=== PATIENT | female | born 1980 | race Caucasian/White ===

== ENCOUNTER 2016-11-10 16:09 | Emergency (ER) | payer OTHER ==
[2016-11-10] MEDS ORDERED: DECADRON 10MG INJ. IM ONE (16:32)
[2016-11-10] MEDS ORDERED: DECADRON 10MG INJ. ONE (16:34)
--- NOTE | 2016-11-10 16:37 | ERPHSYRPT ---
- History of Present Illness Time Seen by Provider: 11/10/16 16:26 Source: patient Patient Subjective Stated Complaint: cough and sore throat since yesterday. denies fever. c/o burning in chest when she coughs Triage Nursing Assessment: ambulated to room per self. occasional dry cough noted. resp easy. skin w/d, normal color. breath sounds clear. Physician History: CC: cough hx: 36 y/o with prior BTL. She has cough and now sore throat with some hoarseness. No fever. No hx of asthma. She has HTN. No rash, vomiting, nor diarrhea. Timing/Duration: day(s) (2) Allergies/Adverse Reactions: ciprofloxacin [From Cipro] Allergy (Verified 11/10/16 16:22) ciprofloxacin HCl [From Cipro] Allergy (Verified 11/10/16 16:22) iodine Allergy (Verified 11/10/16 16:22) Home Medications: Aspirin [[place] Aspirin] 81 mg PO DAILY 11/10/16 [History] Ergocalciferol (Vitamin D2) [Vitamin D] 400 unit PO DAILY 11/10/16 [History] Lisinopril/Hctz 20/12.5 mg [Lisinopril/ Hctz 20/12.5] 20 mg PO DAILY 11/10/16 [ History] Pravastatin Sodium [Pravachol] 10 mg PO DAILY 11/10/16 [History] Hx Tetanus, Diphtheria Vaccination/Date Given: No Hx Influenza Vaccination/Date Given: No Hx Pneumococcal Vaccination/Date Given: No - Review of Systems Constitutional: Malaise, No Fever, No Chills Eyes: No Symptoms Ears, Nose, & Throat: Throat Pain Respiratory: Cough Abdominal/Gastrointestinal: No Vomiting, No Diarrhea Skin: No Rash Neurological: No Headache All Other Systems: Reviewed and Negative - Past Medical History Pertinent Past Medical History: Yes Cardiac History: Hypertension - Past Surgical History Past Surgical History: Yes Gastrointestinal: Appendectomy Female Surgical History: Tubal Ligation - Social History Smoking Status: Current every day smoker How long have you smoked: 13 Exposure to second hand smoke: Yes Drug Use: none Patient Lives Alone: No - Female History Hx Last Menstrual Period: now Hx Now: Yes - Nursing Vital Signs Nursing Vital Signs: Initial Vital Signs Temperature 97.8 F 11/10/16 16:15 Pulse Rate 68 11/10/16 16:15 Respiratory Rate 16 11/10/16 16:15 Blood Pressure 130/71 11/10/16 16:15 O2 Sat by Pulse Oximetry 97 11/10/16 16:15 Pain Scale Pain Intensity 8 - Physical Exam General Appearance: alert Eye Exam: PERRL/EOMI Ears, Nose, Throat Exam: moist mucous membranes, pharyngeal erythema Neck Exam: normal inspection, non-tender, supple Respiratory Exam: normal breath sounds, lungs clear Cardiovascular Exam: regular rate/rhythm Gastrointestinal/Abdomen Exam: soft, No tenderness, No distention Extremity Exam: normal inspection, normal range of motion Neurologic Exam: alert, oriented x 3, cooperative, sensation nml, No motor deficits Skin Exam: warm, dry, No rash SpO2 Interpretation: normal SpO2: 100 Oxygen Delivery: Room Air - Course Nursing assessment & vital signs reviewed: Yes Ordered Tests: Medication Summary Generic Name Dose Route Start Last Admin Trade Name Freq PRN Reason Stop Dose Admin Dexamethasone Sodium Phosphate 10 mg 11/10/16 16:32 Decadron 10mg Inj. IM 11/10/16 16:33 STAT ONE - Progress Progress Note: 11/10/16 16:36 Decadron IM given. Rx amoxil and alb MDI. Counseled pt/family regarding: diagnosis, need for follow-up - Departure Time of Disposition: 16:36 Departure Disposition: Home Clinical Impression: Acute laryngitis, Acute bronchitis Condition: Stable Critical Care Time: No Referrals: RENATE BENTON [Primary Care Provider] - Instructions: Cough -- Adult, Bronchitis Additional Instructions: UPPER RESPIRATORY INFECTIONS 1. The signs and symptoms of a cold may last up to 10 days. These illnesses are due to viruses which are not treatable with antibiotics. 2. The following suggestions can aid in recovery and to minimize symptoms: A. Increase fluid intake. B. Acetaminophen or Ibuprofen as directed. C. Avoid smoking environments as this will increase the risk of developing pneumonia. D. For children, may use a cool mist vaporizer in the child's room. 3. Contact your Family Physician if you note: A. Persisten fever >103 for more than 3 days B. Breathing difficulty C. Productive cough of yellow/green sputum D. Illness greater than 7 days E. Persistent vomiting F. Stiff neck Rx albuterol MDI. Rx amoxil. Prescriptions: Albuterol Sulfate [Albuterol Sulfate Hfa] 2 puff IH Q4-6HPRN PRN #1 [id number] PRN Reason: cough or wheeze Amoxicillin [Amoxil] 1 cap PO TID #30 capsule
[2016-11-10 16:52] VITALS: BP 133/71; PULSE 64; O2SAT 99
== END 2016-11-10 16:51 | disposition home or self-care (01) ==
LOC: ED 16:09
DX: J04.0 Acute laryngitis (principal); J20.9 Acute bronchitis, unspecified; R05 Cough; R53.81 Other malaise
CPT/HCPCS: 96372; 99284; J1100

== ENCOUNTER 2017-09-10 21:58 | Emergency (ER) | payer OTHER ==
[2017-09-10 22:14] VITALS: PULSE 80; O2SAT 98
--- NOTE | 2017-09-10 22:29 | ERPHSYRPT ---
- History of Present Illness Time Seen by Provider: 09/10/17 22:20 Source: patient Exam Limitations: no limitations Patient Subjective Stated Complaint: Pt arrives to ER with c/o HTN stating around 2029 BP was 201/97. Pt BP was 152/87 this morning. Forgot to take Lisinopril this morning so took it around 1200. Uses home BP cuff, states woke up with a headache, picked up daughter, came back home and checked her BP, found it to be high. Pt called PCP after hours and was told to come into ER. pt has pain in right arm, neck and headache. Pt does not appear to be in any distress at this time. BP upon arrival to ER 151/89. Triage Nursing Assessment: see above Physician History: The patient is a 37-year-old female complaining of a headache all day. She also has some tingling in her right fingers with extension of the tingling up to her right shoulder. She states this right hand and arm problem is intermittent and has been going on for several weeks and she is not worried about it. She took her blood pressure with her home blood pressure cuff and found it to be 201/97. She took a nap hoping that the headache would go away but it did not. She did not take any pain medicine. She wanted to call her primary care provider but she is on vacation. Her blood pressure is normally about 120 systolic. She does take lisinopril. Her past medical history significant for hypertension. Timing/Duration: today Severity: moderate Modifying Factors: Improves With: nothing Associated Symptoms: headaches Allergies/Adverse Reactions: ciprofloxacin [From Cipro] Allergy (Verified 09/10/17 22:14) ciprofloxacin HCl [From Cipro] Allergy (Verified 09/10/17 22:14) iodine Allergy (Verified 09/10/17 22:14) Home Medications: Aspirin [[place] Aspirin] 81 mg PO DAILY 11/10/16 [History] Ergocalciferol (Vitamin D2) [Vitamin D] 400 unit PO DAILY 11/10/16 [History] Pravastatin Sodium [Pravachol] 10 mg PO DAILY 11/10/16 [History] Lisinopril 5 mg PO DAILY 09/10/17 [History] hydroCHLOROthiazide [Hydrochlorothiazide] 12.5 mg PO DAILY 09/10/17 [History] Hx Tetanus, Diphtheria Vaccination/Date Given: No Hx Influenza Vaccination/Date Given: No Hx Pneumococcal Vaccination/Date Given: No - Review of Systems Constitutional: No Fever, No Chills Eyes: No Symptoms Ears, Nose, & Throat: No Symptoms Respiratory: No Cough, No Dyspnea Cardiac: No Chest Pain, No Edema, No Syncope Abdominal/Gastrointestinal: No Symptoms Genitourinary Symptoms: No Dysuria Musculoskeletal: No Back Pain, No Neck Pain Skin: No Rash Neurological: Headache Psychological: No Symptoms Endocrine: No Symptoms Hematologic/Lymphatic: No Symptoms Immunological/Allergic: No Symptoms All Other Systems: Reviewed and Negative - Past Medical History Pertinent Past Medical History: Yes Cardiac History: Hypertension - Past Surgical History Past Surgical History: Yes Gastrointestinal: Appendectomy Female Surgical History: Tubal Ligation - Social History Smoking Status: Current every day smoker How long have you smoked: 0.25 Exposure to second hand smoke: Yes Drug Use: none Patient Lives Alone: No - Female History Hx Now: No - Nursing Vital Signs Nursing Vital Signs: Initial Vital Signs Temperature 99 F 09/10/17 22:05 Pulse Rate 80 09/10/17 22:05 Respiratory Rate 18 09/10/17 22:05 Blood Pressure 151/89 09/10/17 22:05 O2 Sat by Pulse Oximetry 98 09/10/17 22:05 Pain Scale Pain Intensity 8 - Physical Exam General Appearance: no apparent distress, alert Eye Exam: PERRL/EOMI, eyes nml inspection Ears, Nose, Throat Exam: normal ENT inspection, TMs normal, pharynx normal, moist mucous membranes Neck Exam: normal inspection, non-tender, supple, full range of motion Respiratory Exam: normal breath sounds, lungs clear, No respiratory distress Cardiovascular Exam: regular rate/rhythm, normal heart sounds, normal peripheral pulses Gastrointestinal/Abdomen Exam: soft, normal bowel sounds, No tenderness, No mass Pelvic Exam: not done Rectal Exam: not done Back Exam: normal inspection, normal range of motion, No CVA tenderness, No vertebral tenderness Extremity Exam: normal inspection, normal range of motion, pelvis stable Neurologic Exam: alert, oriented x 3, cooperative, normal mood/affect, nml cerebellar function, nml station & gait, sensation nml, No motor deficits Skin Exam: normal color, warm, dry, No rash Lymphatic Exam: No adenopathy SpO2 Interpretation: normal SpO2: 98 Oxygen Delivery: Room Air Ordered Tests: Active Orders 24 hr Category Date Time Status IV Insertion STAT Care 09/10/17 22:29 Active BMP Stat Lab 09/10/17 22:30 Completed CBC W DIFF Stat Lab 09/10/17 22:30 Completed CULTURE,URINE Stat Lab 09/10/17 22:36 Received UA W/ MICROSCOPIC Stat Lab 09/10/17 22:36 Completed Urine Triage Profile Stat Lab 09/10/17 22:30 Completed Medication Summary Discontinued Medications Generic Name Dose Route Start Last Admin Trade Name Arpan PRN Reason Stop Dose Admin Ketorolac Tromethamine 30 mg 09/10/17 22:29 09/10/17 22:35 Toradol 30 Mg Injection IV 09/10/17 22:30 30 mg STAT ONE Administration Ketorolac Tromethamine Confirm 09/10/17 22:32 Toradol 30 Mg Injection Administered 09/10/17 22:33 Dose 30 mg .ROUTE .[employer] ONE Lab/Rad Data: Laboratory Result Diagrams 09/10/17 22:30 09/10/17 22:30 Laboratory Results 09/10/17 09/10/17 09/10/17 Range/Units 22:36 22:30 22:30 WBC (4.0-10.5) K/mm3 RBC (4.1-5.4) M/mm3 Hgb (12.0-16.0) gm/dl Hct (35-47) % MCV (78-100) fl MCH (26-32) pg MCHC (32-36) g/dl RDW (11.5-14.0) % Plt Count (150-450) K/mm3 MPV (6-9.5) fl Gran % (36.0-66.0) % Eos # (Auto) (0-0.5) Absolute Lymphs (auto) (1.0-4.6) Absolute Monos (auto) (0.0-1.3) Lymphocytes % (24.0-44.0) % Monocytes % (0.0-12.0) % Eosinophils % (0.00-5.0) % Basophils % (0.0-0.4) % Absolute Granulocytes (1.4-6.9) Basophils # (0-0.4) Sodium 141 (137-145) mmol/L Potassium 3.8 (3.5-5.1) mmol/L Chloride 107 (98-107) mmol/L Carbon Dioxide 25 (22-30) mmol/L Anion Gap 13.3 (5-15) MEQ/L BUN 8 (7-17) mg/dL Creatinine 0.89 (0.52-1.04) mg/dL Estimated GFR > 60.0 ML/MIN Glucose 103 (74-106) mg/dL Calcium 9.6 (8.4-10.2) mg/dL Ur Collection Type VOID Urine Color YELLOW (YELLOW) Urine Appearance CLOUDY (CLEAR) Urine pH 7.5 (5-6) Ur Specific [place] 1.010 (1.005-1.025) Urine Protein TRACE (Negative) Urine Ketones NEGATIVE (NEGATIVE) Urine Blood NEGATIVE (0-5) Bang/ul Urine Nitrite NEGATIVE (NEGATIVE) Urine Bilirubin NEGATIVE (NEGATIVE) Urine Urobilinogen NORMAL (0-1) mg/dL Ur Leukocyte Esterase TRACE (NEGATIVE) Urine Microscopic WBC 2-5 (0-5) /HPF Ur Epithelial Cells MODERATE (FEW) /HPF Urine Bacteria MODERATE (NEGATIVE) /HPF Urine Culture Reflexed YES (NO) Urine Glucose NEGATIVE (NEGATIVE) mg/dL Urine Opiates Level NEGATIVE (NEGATIVE) Ur Methadone NEGATIVE (NEGATIVE) Urine Barbiturates NEGATIVE (NEGATIVE) Ur Phencyclidine (PCP) NEGATIVE (NEGATIVE) Urine Amphetamine NEGATIVE (NEGATIVE) U Benzodiazepine Level NEGATIVE (NEGATIVE) Urine Cocaine NEGATIVE (NEGATIVE) Urine Marijuana (THC) NEGATIVE (NEGATIVE) Specimen Received 09/10/175 09/10/17 Range/Units 22:30 WBC 9.4 (4.0-10.5) K/mm3 RBC 4.94 (4.1-5.4) M/mm3 Hgb 14.7 (12.0-16.0) gm/dl Hct 42.5 (35-47) % MCV 86.0 (78-100) fl MCH 29.8 (26-32) pg MCHC 34.6 (32-36) g/dl RDW 13.1 (11.5-14.0) % Plt Count 286 (150-450) K/mm3 MPV 10.1 H (6-9.5) fl Gran % 58.6 (36.0-66.0) % Eos # (Auto) 0.12 (0-0.5) Absolute Lymphs (auto) 2.74 (1.0-4.6) Absolute Monos (auto) 1.00 (0.0-1.3) Lymphocytes % 29.2 (24.0-44.0) % Monocytes % 10.6 (0.0-12.0) % Eosinophils % 1.3 (0.00-5.0) % Basophils % 0.3 (0.0-0.4) % Absolute Granulocytes 5.50 (1.4-6.9) Basophils # 0.03 (0-0.4) Sodium (137-145) mmol/L Potassium (3.5-5.1) mmol/L Chloride (98-107) mmol/L Carbon Dioxide (22-30) mmol/L Anion Gap (5-15) MEQ/L BUN (7-17) mg/dL Creatinine (0.52-1.04) mg/dL Estimated GFR ML/MIN Glucose (74-106) mg/dL Calcium (8.4-10.2) mg/dL Ur Collection Type Urine Color (YELLOW) Urine Appearance (CLEAR) Urine pH (5-6) Ur Specific [place] (1.005-1.025) Urine Protein (Negative) Urine Ketones (NEGATIVE) Urine Blood (0-5) Bang/ul Urine Nitrite (NEGATIVE) Urine Bilirubin (NEGATIVE) Urine Urobilinogen (0-1) mg/dL Ur Leukocyte Esterase (NEGATIVE) Urine Microscopic WBC (0-5) /HPF Ur Epithelial Cells (FEW) /HPF Urine Bacteria (NEGATIVE) /HPF Urine Culture Reflexed (NO) Urine Glucose (NEGATIVE) mg/dL Urine Opiates Level (NEGATIVE) Ur Methadone (NEGATIVE) Urine Barbiturates (NEGATIVE) Ur Phencyclidine (PCP) (NEGATIVE) Urine Amphetamine (NEGATIVE) U Benzodiazepine Level (NEGATIVE) Urine Cocaine (NEGATIVE) Urine Marijuana (THC) (NEGATIVE) Specimen Received - Progress Progress: improved Counseled pt/family regarding: lab results, diagnosis - Departure Time of Disposition: 23:19 Departure Disposition: Home Clinical Impression: Headache Condition: Stable Critical Care Time: No Referrals: RENATE BENTON [Primary Care Provider] - Additional Instructions: You have a headache that we treated with Toradol 30 mg by IV. Your laboratory results were all normal including the urinalysis. Continue with over-the- counter medicine such as Tylenol 1000 mg every 8 hours or ibuprofen 800 mg every 8 hours as needed. Follow-up with your primary medical doctor as needed.
[2017-09-10] MEDS ORDERED: TORAdol 30 mg Injection ONE (22:32)
[2017-09-10 22:34] LABS: BASOPHIL % 0.3 % (0.0-0.4); Basophil (Absolute #) 0.03 (0-0.4); Eosinophil % 1.3 % (0.00-5.0); Eosinophil (Absolute #) 0.12 (0-0.5); Granulocytes % 58.6 % (36.0-66.0); Hematocrit 42.5 % (35-47); Hemoglobin 14.7 gm/dl (12.0-16.0); Lymphocyte (Absolute #) 2.74 (1.0-4.6); Lymphocytes % 29.2 % (24.0-44.0); Mean Corpuscular Hemoglobin 29.8 pg (26-32); Mean Corpuscular Hgb Concent. 34.6 g/dl (32-36); Mean Platelet Volume 10.1 fl (6-9.5); Monocytes % 10.6 % (0.0-12.0); Platelet Count 286 K/mm3 (150-450); Red Blood Count 4.94 M/mm3 (4.1-5.4); Red Cell Distribution Width 13.1 % (11.5-14.0); White Blood Count 9.4 K/mm3 (4.0-10.5)
[2017-09-10] MEDS: TORAdol 30 mg Injection IV ONE (22:35)
[2017-09-10 22:49] LABS: Appearance CLOUDY (CLEAR); Bilirubin NEGATIVE (NEGATIVE); Blood NEGATIVE Ery/ul (0-5); Glucose NEGATIVE (NEGATIVE); Ketones NEGATIVE (NEGATIVE); Leukocyte Esterase TRACE (NEGATIVE); Nitrite NEGATIVE (NEGATIVE); Ph 7.5 (5-6); Urobilinogen NORMAL mg/dL (0-1)
[2017-09-10 22:50] LABS: Protein,Urine Dip TRACE (Negative)
[2017-09-10 22:53] LABS: Bacteria MODERATE /HPF (NEGATIVE); Epithelial Cells MODERATE /HPF (FEW)
[2017-09-10 22:57] LABS: Amphetamine,Urine NEGATIVE (NEGATIVE); Barbiturate,Urine NEGATIVE (NEGATIVE); Benzodiazepine,Urine NEGATIVE (NEGATIVE); Cocaine,Urine NEGATIVE (NEGATIVE); Methadone,Urine NEGATIVE (NEGATIVE); Opiate,Urine NEGATIVE (NEGATIVE); PCP,Urine NEGATIVE (NEGATIVE); THC,Urine NEGATIVE (NEGATIVE)
[2017-09-10 23:04] LABS: ANION GAP 13.3 MEQ/L (5-15); BLOOD UREA NITROGEN 8 mg/dL (7-17); CHLORIDE 107 mmol/L (98-107); Calcium 9.6 mg/dL (8.4-10.2); Carbon Dioxide 25 mmol/L (22-30); Creatinine 1 0.89 mg/dL (0.52-1.04); Glucose 103 mg/dL (74-106); Potassium 3.8 mmol/L (3.5-5.1); SODIUM 141 mmol/L (137-145)
[2017-09-10 23:22] VITALS: BP 123/75
== END 2017-09-10 23:25 | disposition home or self-care (01) ==
LOC: ED 21:58
DX: R51 Headache (principal); I10 Essential (primary) hypertension; Z72.0 Tobacco use; Z79.899 Other long term (current) drug therapy
CPT/HCPCS: 36000; 36415; 80048; 80307; 81000; 85025; 87086; 96374; 99284; J1885

== ENCOUNTER 2020-01-01 19:11 | Emergency (ER) | payer BC, OTHER ==
[2020-01-01 19:19] VITALS: O2SAT 99
--- NOTE | 2020-01-01 19:45 | ERPHSYRPT ---
- History of Present Illness Source: patient Patient Subjective Stated Complaint: pt c/o bites to lt arm and lt lower leg Triage Nursing Assessment: pt has 2 bites with redness and welps to lt elbow/upper arm and 1 bite to lt lower ext with blister and a couple blisters that have busted. All areas are red, warm and skin is tight. Pt denies any pain but can feel the tightness. Physician History: 39 yo wf w lesions LUE/LLE x 1 day. Pt states that she thinks that something has bitten her. Lesions are mildly painful and mildly pruritic. She has never had lesions like this before, and denies family members w similar lesions. New exposures are also denied, along w fever/ST. Timing/Duration: other (1 day) Quality: itchy, painful Severity: mild Location: extremities Possible Causes: no cause identified Associated Symptoms: blisters, No change in skin texture, No difficulty breathing, No edema, No fever, No flushing, No headache, No hives, No jaundice, No malaise, No nasal congestion, No numbness, No pallor, No paresthesia, No petechiae, No rash, No sore throat, No swelling/mass/lumps, No tingling Allergies/Adverse Reactions: ciprofloxacin [From Cipro] Allergy (Severe, Verified 01/01/20 19:25) Shortness of Breath ciprofloxacin HCl [From Cipro] Allergy (Severe, Verified 01/01/20 19:25) Shortness of Breath iodine Allergy (Intermediate, Verified 01/01/20 19:25) Rash poison cosme extract Allergy (Intermediate, Verified 01/01/20 19:25) Rash poison oak extract Allergy (Intermediate, Verified 01/01/20 19:25) Rash Home Medications: Aspirin [[place] Aspirin] 81 mg PO DAILY 11/10/16 [History] Ergocalciferol (Vitamin D2) [Vitamin D] 400 unit PO UD 11/10/16 [History] hydroCHLOROthiazide [Hydrochlorothiazide] 12.5 mg PO DAILY 09/10/17 [History] lisinopriL [Lisinopril] 10 mg PO DAILY 09/10/17 [History] Amlodipine Besylate 5 mg PO DAILY 01/01/20 [History] Sertraline HCl 50 mg [Zoloft 50 mg Tablet] 50 mg PO DAILY 01/01/20 [History] Hx Tetanus, Diphtheria Vaccination/Date Given: Yes Hx Influenza Vaccination/Date Given: Yes Hx Pneumococcal Vaccination/Date Given: No Immunizations Up to Date: Yes Travel Risk - International Travel Have you traveled outside of the country in past 3 weeks: No - Coronavirus Screening Are you exhibiting any of the following symptoms?: No - Review of Systems Constitutional: No Symptoms Eyes: No Symptoms Ears, Nose, & Throat: No Symptoms Respiratory: No Symptoms Cardiac: No Symptoms Abdominal/Gastrointestinal: No Symptoms Genitourinary Symptoms: No Symptoms Musculoskeletal: No Symptoms Neurological: No Symptoms Psychological: No Symptoms Endocrine: No Symptoms Hematologic/Lymphatic: No Symptoms Immunological/Allergic: No Symptoms - Past Medical History Pertinent Past Medical History: Yes Neurological History: No Pertinent History ENT History: No Pertinent History Cardiac History: Hypertension Respiratory History: Bronchitis Endocrine Medical History: No Pertinent History Musculoskeletal History: No Pertinent History GI Medical History: No Pertinent History History: No Pertinent History Psycho-Social History: Depression Female Reproductive Disorders: No Pertinent History - Past Surgical History Past Surgical History: Yes Neuro Surgical History: No Pertinent History Cardiac: No Pertinent History Respiratory: No Pertinent History Gastrointestinal: Appendectomy Genitourinary: No Pertinent History Musculoskeletal: No Pertinent History Female Surgical History: Tubal Ligation - Social History Smoking Status: Former smoker How long have you smoked: 0.25 Exposure to second hand smoke: No Drug Use: none Patient Lives Alone: No - Female History Hx Last Menstrual Period: Nov, 2019 Hx Now: No - Nursing Vital Signs Nursing Vital Signs: Initial Vital Signs Temperature 98.1 F 01/01/20 19:17 Pulse Rate 66 01/01/20 19:17 Respiratory Rate 18 01/01/20 19:17 Blood Pressure 169/65 01/01/20 19:17 O2 Sat by Pulse Oximetry 99 01/01/20 19:17 Pain Scale Pain Intensity 0 - Physical Exam General Appearance: no apparent distress Eye Exam: PERRL/EOMI, eyes nml inspection Ears, Nose, Throat Exam: normal ENT inspection, TMs normal, pharynx normal, moist mucous membranes Neck Exam: normal inspection, non-tender, supple, full range of motion, No meningismus, No mass, No Brudzinski, No Kernig's Respiratory Exam: normal breath sounds, lungs clear, airway intact, No re spiratory distress Cardiovascular Exam: regular rate/rhythm, normal heart sounds, normal peripheral pulses, No murmur Gastrointestinal/Abdomen Exam: soft, normal bowel sounds, No tenderness Pelvic Exam: not done Back Exam: normal inspection, normal range of motion, No CVA tenderness, No vertebral tenderness Neurologic Exam: alert, oriented x 3, 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 Lesions L pretibial area w bullae and could possibly be infected lesions, so doxycycline started. Pt advised to start Doxycycline twice a day. Counseled pt/family regarding: diagnosis, need for follow-up - Departure Departure Disposition: Home Clinical Impression: Insect bites Condition: Stable Critical Care Time: No Referrals: RENATE JOSHI [Primary Care Provider] - Instructions: Insect Bites and Stings (DC) Additional Instructions: Start Benadryl 25mg every 6 hours as needed Doxycycline twice a day for 1 week Follow up with your family MD in 2-3 days Return to ER for increasing redness/swelling/temperature greater than 100.5 Prescriptions: Doxycycline Monohydrate 100 mg PO BID #14 tablet
[2020-01-01 20:44] VITALS: BP 140/82; PULSE 62
== END 2020-01-01 20:26 | disposition home or self-care (01) ==
LOC: ED 19:11
DX: S70.362A Insect bite (nonvenomous), left thigh, initial encounter (principal); S40.862A Insect bite (nonvenomous) of left upper arm, initial encounter; Z79.899 Other long term (current) drug therapy
CPT/HCPCS: 99283

== ENCOUNTER 2021-06-02 13:23 | Emergency (ER) | payer OTHER ==
--- NOTE | 2021-06-02 13:25 | ERPHSYRPT ---
- History of Present Illness Time Seen by Provider: 06/02/21 13:25 Source: patient Exam Limitations: no limitations Physician History: This is a right-handed, 41-year-old, white female patient of Dr. Du Cotton who presents with 2-week history of right wrist pain. She did not fall or suffer any acute traumatic injury per her report. She does not perform repetitive activity with her wrists. She has a [id number] wrist splint. She states this helps the pain. She is concerned about a fracture. Occurred: other (2 weeks) Method of Injury: other (No acute injury) Quality: aching (When moving side to side) Severity of Pain-Max: mild (To moderate) Severity of Pain-Current: mild Extremities Pain Location: wrist: right Modifying Factors: Improves With: movement (Side to side (medial to lateral)) Associated Symptoms: none Allergies/Adverse Reactions: ciprofloxacin [From Cipro] Allergy (Severe, Verified 06/02/21 13:38) Shortness of Breath ciprofloxacin HCl [From Cipro] Allergy (Severe, Verified 06/02/21 13:38) Shortness of Breath iodine Allergy (Intermediate, Verified 06/02/21 13:38) Rash poison cosme extract Allergy (Intermediate, Verified 06/02/21 13:38) Rash poison oak extract Allergy (Intermediate, Verified 06/02/21 13:38) Rash Home Medications: Aspirin [[place] Aspirin] 81 mg PO DAILY 11/10/16 [History] Ergocalciferol (Vitamin D2) [Vitamin D] 400 unit PO UD 11/10/16 [History] hydroCHLOROthiazide [Hydrochlorothiazide] 12.5 mg PO DAILY 09/10/17 [History] lisinopriL [Lisinopril] 10 mg PO DAILY 09/10/17 [History] Amlodipine Besylate 5 mg PO DAILY 01/01/20 [History] Sertraline HCl 50 mg [Zoloft 50 mg Tablet] 100 mg PO DAILY 01/01/20 [History] Hx Tetanus, Diphtheria Vaccination/Date Given: Yes Hx Influenza Vaccination/Date Given: Yes Hx Pneumococcal Vaccination/Date Given: No Travel Risk - International Travel Have you traveled outside of the country in past 3 weeks: No - Coronavirus Screening Are you exhibiting any of the following symptoms?: No Close contact with a COVID-19 positive Pt in past 14-21 Days: No - Review of Systems Constitutional: No Symptoms Eyes: No Symptoms Ears, Nose, & Throat: No Symptoms Respiratory: No Symptoms Cardiac: No Symptoms Abdominal/Gastrointestinal: No Symptoms Genitourinary Symptoms: No Symptoms Musculoskeletal: Joint Pain (Right wrist) Skin: No Symptoms Neurological: No Symptoms Psychological: No Symptoms Endocrine: No Symptoms Hematologic/Lymphatic: No Symptoms Immunological/Allergic: No Symptoms All Other Systems: Reviewed and Negative - Past Medical History Pertinent Past Medical History: Yes Neurological History: No Pertinent History ENT History: No Pertinent History Cardiac History: Hypertension Respiratory History: Bronchitis Endocrine Medical History: No Pertinent History Musculoskeletal History: No Pertinent History GI Medical History: No Pertinent History History: No Pertinent History Psycho-Social History: Depression Female Reproductive Disorders: No Pertinent History - Past Surgical History Past Surgical History: Yes Neuro Surgical History: No Pertinent History Cardiac: No Pertinent History Respiratory: No Pertinent History Gastrointestinal: Appendectomy Genitourinary: No Pertinent History Musculoskeletal: No Pertinent History Female Surgical History: Tubal Ligation - Social History Smoking Status: Former smoker How long have you smoked: 0.25 Exposure to second hand smoke: No Drug Use: none Patient Lives Alone: No - Nursing Vital Signs Nursing Vital Signs: Initial Vital Signs Temperature 97.6 F 06/02/21 13:26 Pulse Rate 58 L 06/02/21 13:26 Blood Pressure 154/81 06/02/21 13:26 O2 Sat by Pulse Oximetry 100 06/02/21 13:26 Pain Scale Pain Intensity 6 - Physical Exam General Appearance: no apparent distress, alert, anxiety, obese Eyes, Ears, Nose, Throat Exam: normal ENT inspection, moist mucous membranes Neck Exam: normal inspection, non-tender, supple, full range of motion Cardiovascular/Respiratory Exam: chest non-tender, no respiratory distress Abdominal Exam: non-tender Back Exam: No CVA tenderness, No vertebral tenderness Shoulder Exam: normal inspection, non-tender, no evidence of injury, normal ROM Elbow/Forearm Exam: normal inspection, non-tender, no evidence of injury, normal ROM Wrist Exam: normal inspection, no evidence of injury, normal ROM, soft tissue tenderness (With lateral to medial movement), No deformity Hand Exam: normal inspection, non-tender, no evidence of injury, normal ROM Neuro/Tendon Exam: normal sensation, normal motor functions, normal tendon functions Mental Status Exam: alert, oriented x 3, cooperative Skin Exam: normal color, warm, dry SpO2 Interpretation: normal O2 Delivery: Room Air - Course Nursing assessment & vital signs reviewed: Yes Ordered Tests: Active Orders 24 hr Category Date Time Status WRIST (MIN 3 VIEWS) Stat Exams 06/02/21 13:36 Completed - Progress Progress: unchanged Progress Note: 06/02/21 14:24 Right wrist x-ray shows no acute fracture or dislocation. Counseled pt/family regarding: diagnosis, need for follow-up, rad results - Departure Departure Disposition: Home Clinical Impression: Right wrist pain Condition: Stable Critical Care Time: No Referrals: RENATE NGUYEN [Primary Care Provider] - Follow up/PCP as directed Additional Instructions: Place right hand and wrist in a ice bath as discussed 3 times a day for the next 48 hours. Add Tylenol to the prednisone I am writing for you. Take your medication as prescribed. If your pain persists beyond 48 hours to the same degree, follow-up with [facility] orthopedic clinic Sunday through Sunday 8 AM to 10 AM. It is a walk-in clinic and you do not need to have an appointment. Wear the splint we provided you for pain control Prescriptions: Prednisone 10 mg [Deltasone 10 mg] 10 mg PO TID #12 tablet
--- NOTE | 2021-06-02 13:56 | XRAY ---
Indication: Pain around ulnar styloid 2 weeks. No known injury. Comparison: None 3 view right wrist obtained. No bony, articular, or soft tissue abnormalities.
[2021-06-02 14:31] VITALS: BP 150/81; PULSE 64; O2SAT 98
== END 2021-06-02 14:35 | disposition home or self-care (01) ==
LOC: ED 13:23
DX: M25.531 Pain in right wrist (principal); I10 Essential (primary) hypertension; Z79.52 Long term (current) use of systemic steroids; Z79.899 Other long term (current) drug therapy
CPT/HCPCS: 73110; 99283; L3908

== ENCOUNTER 2023-01-05 01:05 | Emergency (ER) | payer OTHER ==
[2023-01-05 01:29] VITALS: RESP 16; TEMP 97.5
[2023-01-05] MEDS ORDERED: BENADRYL 25 MG CAPSULE PO ONE (01:35)
[2023-01-05] MEDS ORDERED: solu-MEDROL 125 MG, Sterile H2O 10 ml 2 ML IM ONE ×2 (01:36)
[2023-01-05] MEDS ORDERED: BENADRYL 25 MG CAPSULE ONE (01:39)
[2023-01-05] MEDS ORDERED: solu-MEDROL ONE (01:39)
[2023-01-05] MEDS ORDERED: Sterile H2O 10 ml IJ ONE (01:39)
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
[2023-01-05 02:02] VITALS: BP 154/113; PULSE 69; O2SAT 98
== END 2023-01-05 02:06 | disposition home or self-care (01) ==
LOC: ED 01:05
DX: S40.862A Insect bite (nonvenomous) of left upper arm, initial encounter (principal); S40.861A Insect bite (nonvenomous) of right upper arm, initial encounter; S20.369A Insect bite (nonvenomous) of unspecified front wall of thorax, initial encounter; I10 Essential (primary) hypertension; Z79.52 Long term (current) use of systemic steroids; Z79.899 Other long term (current) drug therapy; Z72.0 Tobacco use
CPT/HCPCS: 96372; 99283; J2930; A9270-GY

== ENCOUNTER 2023-01-28 16:31 | Emergency (ER) | payer OTHER ==
[2023-01-28 16:45] VITALS: BP 140/73; PULSE 77; RESP 18; TEMP 98.8; O2SAT 100
[2023-01-28 17:41] LABS: INFLUENZA A NEGATIVE (NEGATIVE); INFLUENZA B NEGATIVE (NEGATIVE); SARS-CoV-2 Xpert Express NEGATIVE (NEGATIVE)
[2023-01-28 17:48] LABS: RESPIRATORY SYNCTIAL VIRUS POSITIVE (NEGATIVE)
--- NOTE | 2023-01-28 18:23 | ERPHSYRPT ---
- History of Present Illness Time Seen by Provider: 01/28/23 16:44 Source: patient Exam Limitations: no limitations Patient Subjective Stated Complaint: Cough Triage Nursing Assessment: Patient ambulated back to ED and transferred self to bed. Patient A+O X3. Patient's skin pink, warm and dry. Patient complains of cough, fatigue for 4 days. Patient complains of productive cough with thick white mucus. Patient denies pain or discomfort. Lungs clear a/p cecy. Physician History: 42 years old female with history of anxiety/depression/hypertension/tobacco abuse presented in the ER with 4 days history of cough congestion and body aches/fatigue and tiredness. Patient reports having dry cough initially and now having minimal productive clear to thick mucus. No fever or chills reported. Patient reports positive contact with flu and COVID at group home. Denies any difficulty breathing. Has home COVID test done multiple times and was negative. Allergies/Adverse Reactions: ciprofloxacin [From Cipro] Allergy (Severe, Verified 01/28/23 16:33) Shortness of Breath ciprofloxacin HCl [From Cipro] Allergy (Severe, Verified 01/28/23 16:33) Shortness of Breath iodine Allergy (Intermediate, Verified 01/28/23 16:33) Rash poison cosme extract Allergy (Intermediate, Verified 01/28/23 16:33) Rash poison oak extract Allergy (Intermediate, Verified 01/28/23 16:33) Rash Home Medications: Aspirin [[place] Aspirin] 81 mg PO DAILY 11/10/16 [History] Albuterol Sulfate [Albuterol Sulfate Hfa] 2 puff IH Q6HPRN PRN 01/05/23 [History] Cholecalciferol (Vitamin D3) [D-2000] 2,000 unit PO UD 01/05/23 [History] Escitalopram Oxalate [Lexapro] 10 mg PO DAILY 01/05/23 [History] Lisinopril/Hydrochlorothiazide [Lisinopril-Hctz 10-12.5 mg Tab] 1 each PO DAILY 01/05/23 [History] Hx Tetanus, Diphtheria Vaccination/Date Given: No (unknown) Hx Influenza Vaccination/Date Given: Yes Hx Pneumococcal Vaccination/Date Given: No Immunizations Up to Date: Yes Travel Risk - International Travel Have you traveled outside of the country in past 3 weeks: No - Coronavirus Screening Are you exhibiting any of the following symptoms?: No Close contact with a COVID-19 positive Pt in past 14-21 Days: No - Vaccine Status Have you recieved a Covid-19 vaccination: Yes [employer]: Moderna - Vaccination Dates Date of 2cond Vaccination (if applicable): 2020 - Review of Systems Constitutional: Fatigue Eyes: No Symptoms Ears, Nose, & Throat: Nose Congestion Respiratory: Cough Cardiac: No Symptoms Abdominal/Gastrointestinal: No Symptoms Genitourinary Symptoms: No Symptoms Musculoskeletal: Myalgias Skin: No Symptoms Neurological: No Symptoms Psychological: No Symptoms Hematologic/Lymphatic: No Symptoms - Past Medical History Pertinent Past Medical History: Yes Neurological History: No Pertinent History ENT History: No Pertinent History Cardiac History: Hypertension Respiratory History: Bronchitis Endocrine Medical History: No Pertinent History Musculoskeletal History: No Pertinent History GI Medical History: No Pertinent History History: No Pertinent History Psycho-Social History: Depression Female Reproductive Disorders: No Pertinent History - Past Surgical History Past Surgical History: Yes Neuro Surgical History: No Pertinent History Cardiac: No Pertinent History Respiratory: No Pertinent History Gastrointestinal: Appendectomy Genitourinary: No Pertinent History Musculoskeletal: No Pertinent History Female Surgical History: Tubal Ligation - Social History Smoking Status: Current every day smoker How long have you smoked: 25 Exposure to second hand smoke: No Drug Use: none Patient Lives Alone: No Significant Family History: no pertinent family hx - Female History Hx Last Menstrual Period: last month Hx Now: No - Nursing Vital Signs Nursing Vital Signs: Initial Vital Signs Temperature 98.8 F 01/28/23 16:34 Pulse Rate 77 01/28/23 16:34 Respiratory Rate 18 01/28/23 16:34 Blood Pressure 140/73 01/28/23 16:34 O2 Sat by Pulse Oximetry 100 01/28/23 16:34 Pain Scale Pain Intensity 0 - Physical Exam General Appearance: no apparent distress, alert Eye Exam: PERRL/EOMI Ears, Nose, Throat Exam: moist mucous membranes, pharyngeal erythema Neck Exam: normal inspection, non-tender, supple, full range of motion Respiratory Exam: normal breath sounds, lungs clear Cardiovascular Exam: regular rate/rhythm, normal heart sounds Gastrointestinal/Abdomen Exam: soft, No tenderness Back Exam: normal inspection Extremity Exam: normal inspection, normal range of motion Neurologic Exam: alert, oriented x 3, cooperative, 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 Patient has positive contact with COVID and flu. She is not in any distress. Denies any shortness of breath. Lungs bilateral clear to auscultation. Oxygen saturation around 99% on room air. No tachypnea or tachycardia. I have obtained COVID flu and RSV which is positive for RSV but negative COVID and flu. Patient is not in any distress I do not think patient needs x-rays or any other work-up. She has inhaler at home which she is advised to use as needed. Re commended [id number] cough syrup and outpatient follow-up. Discussed signs symptoms of worsening needing return to ER which she seems understanding. Stable for discharge. Blood Culture(s) Obtained: No Antibiotics given: No Counseled pt/family regarding: lab results, diagnosis, need for follow-up, smoking cessation Medical Desision Making - Diagnostic Testing Diagnostic test were ordered, analyzed, and reviewed by me: Yes - Departure Departure Disposition: Home Clinical Impression: RSV bronchitis Condition: Stable Critical Care Time: No Referrals: ROSI ECHEVARRIA MD [Primary Care Provider] - Follow up with PCP 1 day Instructions: Cough, Adult (DC) Additional Instructions: Use inhaler and cough syrup as needed. Take Tylenol/ibuprofen as needed for aches and pains. Follow-up with primary care for reevaluation. Return to ER for any worsening.
== END 2023-01-28 18:39 | disposition home or self-care (01) ==
LOC: ED 16:31
DX: J20.5 Acute bronchitis due to respiratory syncytial virus (principal); R05.1 Acute cough; R09.81 Nasal congestion; M79.10 Myalgia, unspecified site; R53.83 Other fatigue; I10 Essential (primary) hypertension; Z79.899 Other long term (current) drug therapy; Z72.0 Tobacco use
CPT/HCPCS: 0241U; 99282

== ENCOUNTER 2023-03-31 21:09 | Emergency (ER) | payer OTHER ==
--- NOTE | 2023-03-31 21:13 | ERPHSYRPT ---
- History of Present Illness Time Seen by Provider: 03/31/23 21:12 Source: patient Exam Limitations: no limitations Physician History: This is an obese 43-year-old white female patient of Dr. Echevarria who presents to the emergency department with blood pressure concerns. Patient is supposed to be taking a combination medication of lisinopril and hydrochlorothiazide. How ever she has not taken it in over 2 weeks. In the last 3 days she has had headaches. Prior to arrival to the emergency department patient's blood pressure was measured at 174/124. Patient states she stopped her medication for blood pressure because it made her feel weird. On arrival to the emergency department patient's blood pressure measured 200/108. On emergency department visit in January 2023 your blood pressure was measured 140/73. Patient has a history of anxiety and depression, tobacco abuse, hypertension and migraine headaches. She denies chest pain. She denies shortness of breath. Timing/Duration: day(s) (2 to 3 days), worse Severity: moderate Modifying Factors: Improves With: nothing Associated Symptoms: headaches Allergies/Adverse Reactions: ciprofloxacin [From Cipro] Allergy (Severe, Verified 03/31/23 21:19) Shortness of Breath ciprofloxacin HCl [From Cipro] Allergy (Severe, Verified 03/31/23 21:19) Shortness of Breath iodine Allergy (Intermediate, Verified 03/31/23 21:19) Rash poison cosme extract Allergy (Intermediate, Verified 03/31/23 21:19) Rash poison oak extract Allergy (Intermediate, Verified 03/31/23 21:19) Rash Home Medications: Aspirin [[place] Aspirin] 81 mg PO DAILY 11/10/16 [History] Albuterol Sulfate [Albuterol Sulfate Hfa] 2 puff IH Q6HPRN PRN 01/05/23 [History] Cholecalciferol (Vitamin D3) [D-2000] 2,000 unit PO UD 01/05/23 [History] Escitalopram Oxalate [Lexapro] 10 mg PO DAILY 01/05/23 [History] Lisinopril/Hydrochlorothiazide [Lisinopril-Hctz 10-12.5 mg Tab] 1 each PO DAILY 01/05/23 [History] Hx Tetanus, Diphtheria Vaccination/Date Given: No (unknown) Hx Influenza Vaccination/Date Given: Yes Hx Pneumococcal Vaccination/Date Given: No Travel Risk - International Travel Have you traveled outside of the country in past 3 weeks: No - Coronavirus Screening Are you exhibiting any of the following symptoms?: No Close contact with a COVID-19 positive Pt in past 14-21 Days: No - Vaccine Status Have you recieved a Covid-19 vaccination: Yes 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[employer] - Vaccination Dates Date of 2cond Vaccination (if applicable): 2020 - Review of Systems Constitutional: No Symptoms Eyes: No Symptoms Ears, Nose, & Throat: No Symptoms Respiratory: No Symptoms Cardiac: No Symptoms Abdominal/Gastrointestinal: No Symptoms Genitourinary Symptoms: No Symptoms Musculoskeletal: No Symptoms Skin: No Symptoms Neurological: Headache Psychological: Suicidal Ideations Endocrine: No Symptoms Hematologic/Lymphatic: No Symptoms Immunological/Allergic: No Symptoms All Other Systems: Reviewed and Negative - Past Medical History Pertinent Past Medical History: Yes Neurological History: No Pertinent History ENT History: No Pertinent History Cardiac History: Hypertension Respiratory History: Bronchitis Endocrine Medical History: No Pertinent History Musculoskeletal History: No Pertinent History GI Medical History: No Pertinent History History: No Pertinent History Psycho-Social History: Depression Female Reproductive Disorders: No Pertinent History - Past Surgical History Past Surgical History: Yes Neuro Surgical History: No Pertinent History Cardiac: No Pertinent History Respiratory: No Pertinent History Gastrointestinal: Appendectomy Genitourinary: No Pertinent History Musculoskeletal: No Pertinent History Female Surgical History: Tubal Ligation - Social History Smoking Status: Current every day smoker How long have you smoked: 25 Exposure to second hand smoke: No Drug Use: none Patient Lives Alone: No Significant Family History: no pertinent family hx - Nursing Vital Signs Nursing Vital Signs: Initial Vital Signs Temperature 98.3 F 03/31/23 21:24 Pulse Rate 68 03/31/23 21:24 Respiratory Rate 18 03/31/23 21:24 Blood Pressure 200/108 03/31/23 21:24 O2 Sat by Pulse Oximetry 98 03/31/23 21:24 Pain Scale Pain Intensity 7 - Physical Exam General Appearance: no apparent distress, alert, anxiety, obese Eye Exam: PERRL/EOMI, eyes nml inspection Ears, Nose, Throat Exam: normal ENT inspection, moist mucous membranes Neck Exam: normal inspection, non-tender, supple, full range of motion Respiratory Exam: normal breath sounds, lungs clear, airway intact, No chest tenderness, No respiratory distress Cardiovascular Exam: regular rate/rhythm, normal heart sounds, normal peripheral pulses Gastrointestinal/Abdomen Exam: soft, normal bowel sounds, No tenderness Pelvic Exam: not done Rectal Exam: not done Back Exam: normal inspection, normal range of motion, No CVA tenderness, No vertebral tenderness Extremity Exam: normal inspection Neurologic Exam: alert, oriented x 3, 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, 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, normal mood/affect, nml cerebellar function, nml station & gait, sensation nml Skin Exam: normal color, warm, dry Lymphatic Exam: adenopathy SpO2 Interpretation: normal O2 Delivery: Room Air - Course Nursing assessment & vital signs reviewed: Yes Ordered Tests: Active Orders 24 hr Category Date Time Status Rn Acute Dialysis STAT Care 03/31/23 21:42 Active IV Insertion STAT Care 03/31/23 21:41 Active Pulse Oximetry (ED) STAT Care 03/31/23 21:41 Active HEAD WITHOUT CONTRAST [CT] Stat Exams 03/31/23 21:42 Completed BMP Stat Lab 03/31/23 21:58 Completed CBC W DIFF Stat Lab 03/31/23 21:58 Completed MAGNESIUM Stat Lab 03/31/23 21:58 Completed UA W/RFX UR CULTURE Stat Lab 03/31/23 21:41 Completed Medication Summary Discontinued Medications Generic Name Dose Route Start Last Admin Trade Name Freq PRN Reason Stop Dose Admin Labetalol HCl 10 mg 03/31/23 21:41 03/31/23 22:04 Labetalol Hcl 20 Mg/4 Ml Disp.Syringe IV 03/31/23 21:42 10 mg STAT ONE Administration Labetalol HCl Confirm 03/31/23 22:01 Labetalol Hcl 20 Mg/4 Ml Disp.Syringe Administered 03/31/23 22:02 Dose 20 mg IV .STK-MED ONE Lab/Rad Data: Laboratory Result Diagrams 03/31/23 21:58 03/31/23 21:58 Laboratory Results 03/31/23 03/31/23 03/31/23 Range/Units 21:58 21:58 21:41 WBC 7.5 (4.0-10.5) x10^3/uL RBC 5.26 (4.1-5.4) x10^6/uL Hgb 15.4 (12.0-16.0) g/dL Hct 46.2 (35-47) % MCV 87.8 (78-100) fL MCH 29.3 (26-32) pg MCHC 33.3 (32-36) g/dL RDW 12.7 (11.5-14.0) % Plt Count 351 (150-450) x10^3/uL MPV 9.8 (7.5-11.0) fL Gran % 49.3 (36.0-66.0) % Immature Gran % (Auto) 0.1 (0.00-0.4) % Nucleat RBC Rel Count 0.0 (0.00-0.1) % Eos # (Auto) 0.22 (0-0.5) x10^3/uL Immature Gran # (Auto) 0.01 (0.00-0.03) x10^3u/L Absolute Lymphs (auto) 2.79 (1.0-4.6) x10^3/uL Absolute Monos (auto) 0.72 (0.0-1.3) x10^3/uL Absolute Nucleated RBC 0.00 (0.00-0.01) x10^3u/L Lymphocytes % 37.2 (24.0-44.0) % Monocytes % 9.6 (0.0-12.0) % Eosinophils % 2.9 (0.00-5.0) % Basophils % 0.9 (0.0-0.4) % Absolute Granulocytes 3.70 (1.4-6.9) x10^3/uL Basophils # 0.07 (0-0.4) x10^3/uL Sodium 137 (137-145) mmol/L Potassium 3.5 (3.5-5.1) mmol/L Chloride 105 (98-107) mmol/L Carbon Dioxide 25 (22-30) mmol/L Anion Gap 10.7 (5-15) MEQ/L BUN 7 (7-17) mg/dL Creatinine 0.88 (0.52-1.04) mg/dL Estimated GFR 84.6 ML/MIN Glucose 99 (74-106) mg/dL Calcium 9.2 (8.4-10.2) mg/dL Magnesium 2.0 (1.6-2.3) mg/dL Urine Color Yellow (Yellow) Urine Appearance Clear (Clear) Urine pH 6.5 (4.6-8.0) Ur Specific [place] 1.020 (1.005-1.030) Urine Protein Negative (Negative) Urine Glucose (UA) Negative (Negative) mg/dL Urine Ketones Negative (Negative) Urine Blood Large A (Negative) Urine Nitrite Negative (Negative) Urine Bilirubin Negative (Negative) Urine Urobilinogen 1.0 A (0.2) mg/dL Ur Leukocyte Esterase Negative (Negative) U Hyaline Cast (Auto) NONE SEEN (0-2) /LPF Urine Microscopic RBC 0-2 (0-5) /HPF Urine Microscopic WBC 0-2 (0-5) /HPF Ur Epithelial Cells Rare (None Seen) /HPF Urine Bacteria None Seen (None Seen) /HPF Urine Culture Reflexed NO (NO) - Progress Progress: improved, re-examined Progress Note: 03/31/23 21:46 This patient's medical issue is 1 of moderate complexity. The level of complexity in the workup performed is based on review of the patient's past medical history, review of the patient's medication list, review of patient's drug allergy list, history present illness and physical findings on examination. The workup in this patient includes placement of an intravenous line, infusion of 10 mg labetalol, CBC, BMP, urinalysis and CT scan of the head. 03/31/23 22:41 I interpreted the laboratory data results. There is no evidence of any acute, emergent medical issue based on the laboratory data results. CT scan of the head without contrast was interpreted by radiologist and I reviewed the impression. There is no evidence of any intra cranial abnormality. Counseled pt/family regarding: lab results, diagnosis, rad results Medical Desision Making - Independent Historian Additional History obtained from: Relative/friend - Diagnostic Testing Diagnostic test were ordered, analyzed, and reviewed by me: Yes Radiological Interpretation: Interpreted by me - Departure Departure Disposition: Home Clinical Impression: Headache, Hypertension Condition: Stable Critical Care Time: No Referrals: ROSI ECHEVARRIA MD [Primary Care Provider] - Follow up/PCP as directed Additional Instructions: Restart your blood pressure medicine tomorrow morning. Keep 2-day log (morning noon and night) of your blood pressure readings on your medication as prescribed. Call your primary care provider on the morning of 04/02/2023 to have a discussion and to make an appointment with your primary care provider for further evaluation and management
[2023-03-31 21:31] VITALS: TEMP 98.3
[2023-03-31] MEDS ORDERED: TRANDATE 20 MG/4 ML SYRINGE IV ONE ×2 (21:41→22:01)
[2023-03-31 22:03] LABS: BASOPHIL % 0.9 % (0.0-0.4); Basophil (Absolute #) 0.07 x10^3/uL (0-0.4); Eosinophil % 2.9 % (0.00-5.0); Eosinophil (Absolute #) 0.22 x10^3/uL (0-0.5); Hematocrit 46.2 % (35-47); Hemoglobin 15.4 g/dL (12.0-16.0); IMMATURE GRAN # 0.01 x10^3u/L (0.00-0.03); IMMATURE GRAN % 0.1 % (0.00-0.4); Lymphocyte (Absolute #) 2.79 x10^3/uL (1.0-4.6); Lymphocytes % 37.2 % (24.0-44.0); Mean Cell Volume 87.8 fL (78-100); Mean Corpuscular Hemoglobin 29.3 pg (26-32); Mean Corpuscular Hgb Concent. 33.3 g/dL (32-36); Mean Platelet Volume 9.8 fL (7.5-11.0); Monocyte (Absolute #) 0.72 x10^3/uL (0.0-1.3); Monocytes % 9.6 % (0.0-12.0); Neutrophil % 49.3 % (36.0-66.0); Platelet Count 351 x10^3/uL (150-450); Red Blood Count 5.26 x10^6/uL (4.1-5.4); Red Cell Distribution Width 12.7 % (11.5-14.0); White Blood Count 7.5 x10^3/uL (4.0-10.5)
[2023-03-31 22:11] VITALS: O2SAT 97
[2023-03-31 22:16] LABS: ANION GAP 10.7 MEQ/L (5-15); Calcium 9.2 mg/dL (8.4-10.2); Creatinine 1 0.88 mg/dL (0.52-1.04); EST GLOMERULAR FILTRATION RATE 84.6 ML/MIN; Potassium 3.5 mmol/L (3.5-5.1)
[2023-03-31 22:21] LABS: Appearance Clear (Clear); Bacteria None Seen /HPF (None Seen); Bilirubin Negative (Negative); Blood Large (Negative); Glucose, Urine Negative (Negative); Hyaline Casts NONE SEEN /LPF (0-2); Ketones Negative (Negative); Leukocyte Esterase Negative (Negative); Nitrite Negative (Negative); Ph 6.5 (4.6-8.0); Protein,Urine Dip Negative (Negative); RBC 0-2 /HPF (0-5); WBC 0-2 /HPF (0-5)
[2023-03-31 22:22] LABS: ADD URINE CULTURE? NO (NO); Epithelial Cells Rare /HPF (None Seen)
--- NOTE | 2023-03-31 22:25 | XRAY ---
CLINICAL HISTORY:Headache; hypertension COMPARISON:None TECHNIQUE:Multiple axial images are obtained from the skull base to the vertex without contrast. CT scan was performed according to ALARA (as low as reasonable achievable). FINDINGS: The brain shows normal morphology, attenuation, and volume for age. No evidence of space occupying lesion, hemorrhage, edema, mass effect, midline shift, extra axial collection, or hydrocephalus is noted. Ventricles, sulci, and basal cisterns are symmetric and normal in size and configuration. The cardenas-white matter differentiation is preserved. Visualized paranasal sinuses and mastoid air cells are well aerated. Orbital contents are within normal limits. Bony structures are intact. IMPRESSION: 1. No evidence of acute intracranial abnormality is demonstrated Electronically Signed by: Dr. Michele Montes MD. (03/31/2023 22:20:52 EST)
[2023-03-31 22:33] VITALS: BP 155/80; PULSE 61; RESP 22
== END 2023-03-31 22:55 | disposition home or self-care (01) ==
LOC: ED 21:09
DX: I10 Essential (primary) hypertension (principal); R51.9 Headache, unspecified; Z79.899 Other long term (current) drug therapy; Z72.0 Tobacco use
CPT/HCPCS: 36000; 36415; 70450; 80048; 81001; 83735; 85025; 93005; 93041; 94760; 96374; 99284

== ENCOUNTER 2023-04-02 13:19 | Emergency (ER) | payer OTHER ==
--- NOTE | 2023-04-02 14:00 | ERPHSYRPT ---
- History of Present Illness Time Seen by Provider: 04/02/23 14:00 Source: patient Exam Limitations: no limitations Physician History: This is a 43-year-old white female patient of Dr. Echevarria who was seen by me in this emergency department less than 48 hours ago for the same issue. Patient told me that she has her lisinopril and hydrochlorothiazide medication at home. She stated that she has been taking that in the last 48 hours. Patient was instructed to contact her primary care provider this morning to make an appointment for this week. However, patient told the office that she was not feeling well and they told her to come back to the emergency department. However, upon arrival to the emergency department her first 2 systolic blood pressures were 155 and the second 1 was 132. Patient seems very anxious. She is keeping a daily log as discussed. Patient has no chest pain. Patient has no shortness of breath. She has no abdominal pain. She stated that she wants to know why it goes from normal and then jumps up higher. I told her that I would be able to answer that question. She she stopped taking her blood pressure medicine over 2 weeks ago. It appears she expected her blood pressure to normalize within 48 hours. Overall it is improving when looking at her log entries. Patient's urinalysis was free of infection [address] scan of the head was negative for any intracranial abnormality. Timing/Duration: day(s) (2) Severity: mild Associated Symptoms: denies symptoms Allergies/Adverse Reactions: ciprofloxacin [From Cipro] Allergy (Severe, Verified 04/02/23 14:01) Shortness of Breath ciprofloxacin HCl [From Cipro] Allergy (Severe, Verified 04/02/23 14:01) Shortness of Breath iodine Allergy (Intermediate, Verified 04/02/23 14:01) Rash poison cosme extract Allergy (Intermediate, Verified 04/02/23 14:01) Rash poison oak extract Allergy (Intermediate, Verified 04/02/23 14:01) Rash Home Medications: Aspirin [[place] Aspirin] 81 mg PO DAILY 11/10/16 [History] Albuterol Sulfate [Albuterol Sulfate Hfa] 2 puff IH Q6HPRN PRN 01/05/23 [History] Cholecalciferol (Vitamin D3) [D-2000] 2,000 unit PO UD 01/05/23 [History] Escitalopram Oxalate [Lexapro] 10 mg PO DAILY 01/05/23 [History] Lisinopril/Hydrochlorothiazide [Lisinopril-Hctz 10-12.5 mg Tab] 1 each PO DAILY 01/05/23 [History] Hx Tetanus, Diphtheria Vaccination/Date Given: No (unknown) Hx Influenza Vaccination/Date Given: Yes Hx Pneumococcal Vaccination/Date Given: No Travel Risk - International Travel Have you traveled outside of the country in past 3 weeks: No - Coronavirus Screening Are you exhibiting any of the following symptoms?: No Close contact with a COVID-19 positive Pt in past 14-21 Days: No - Vaccine Status Have you recieved a Covid-19 vaccination: Yes 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: [employer] - Vaccination Dates Date of 2cond Vaccination (if applicable): 2020 - Review of Systems Constitutional: No Symptoms Eyes: No Symptoms Ears, Nose, & Throat: No Symptoms Respiratory: No Symptoms Cardiac: No Symptoms Abdominal/Gastrointestinal: No Symptoms Genitourinary Symptoms: No Symptoms Musculoskeletal: No Symptoms Skin: No Symptoms Neurological: No Symptoms Psychological: No Symptoms Endocrine: No Symptoms Hematologic/Lymphatic: No Symptoms Immunological/Allergic: No Symptoms All Other Systems: Reviewed and Negative - Past Medical History Pertinent Past Medical History: Yes Neurological History: No Pertinent History ENT History: No Pertinent History Cardiac History: Hypertension Respiratory History: Bronchitis Endocrine Medical History: No Pertinent History Musculoskeletal History: No Pertinent History GI Medical History: No Pertinent History History: No Pertinent History Psycho-Social History: Depression Female Reproductive Disorders: No Pertinent History - Past Surgical History Past Surgical History: Yes Neuro Surgical History: No Pertinent History Cardiac: No Pertinent History Respiratory: No Pertinent History Gastrointestinal: Appendectomy Genitourinary: No Pertinent History Musculoskeletal: No Pertinent History Female Surgical History: Tubal Ligation - Social History Smoking Status: Current every day smoker How long have you smoked: 25 Exposure to second hand smoke: No Drug Use: none Patient Lives Alone: No Significant Family History: no pertinent family hx - Nursing Vital Signs Nursing Vital Signs: Initial Vital Signs Pulse Rate 63 04/02/23 14:01 Respiratory Rate 24 04/02/23 14:01 Blood Pressure 155/85 04/02/23 14:01 O2 Sat by Pulse Oximetry 96 04/02/23 14:01 Pain Scale Pain Intensity 3 - Physical Exam General Appearance: no apparent distress, alert, anxiety, obese Eye Exam: PERRL/EOMI, eyes nml inspection Ears, Nose, Throat Exam: normal ENT inspection, moist mucous membranes Neck Exam: normal inspection Respiratory Exam: normal breath sounds, lungs clear, airway intact, No chest tenderness, No respiratory distress Cardiovascular Exam: regular rate/rhythm, normal heart sounds, normal peripheral pulses Gastrointestinal/Abdomen Exam: soft, normal bowel sounds, No tenderness Pelvic Exam: not done Rectal Exam: not done Back Exam: normal inspection, normal range of motion, No CVA tenderness, No vertebral tenderness Extremity Exam: normal inspection, normal range of motion, pelvis stable Neurologic Exam: alert, oriented x 3, 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, 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, normal mood/affect, nml cerebellar function, nml station & gait, sensation nml Skin Exam: normal color, warm, dry Lymphatic Exam: No adenopathy SpO2 Interpretation: normal O2 Delivery: Room Air - Course Nursing assessment & vital signs reviewed: Yes Ordered Tests: Active Orders 24 hr Category Date Time Status EKG-ER Only STAT Care 04/02/23 14:36 Active IV Insertion STAT Care 04/02/23 14:36 Active CBC W DIFF Stat Lab 04/02/23 14:55 Completed CMP Stat Lab 04/02/23 14:55 Completed MAGNESIUM Stat Lab 04/02/23 14:55 Completed TROPONIN Q4H Lab 04/02/23 14:55 Completed TROPONIN Q4H Lab 04/02/23 18:45 Ordered TROPONIN Q4H Lab 04/02/23 22:45 Ordered UA W/RFX UR CULTURE Stat Lab 04/02/23 14:49 Completed Lab/Rad Data: Laboratory Result Diagrams 04/02/23 14:55 04/02/23 14:55 Laboratory Results 04/02/23 04/02/23 04/02/23 Range/Units 14:55 14:55 14:55 WBC 7.9 (4.0-10.5) x10^3/uL RBC 5.29 (4.1-5.4) x10^6/uL Hgb 15.6 (12.0-16.0) g/dL Hct 46.6 (35-47) % MCV 88.1 (78-100) fL MCH 29.5 (26-32) pg MCHC 33.5 (32-36) g/dL RDW 12.7 (11.5-14.0) % Plt Count 366 (150-450) x10^3/uL MPV 9.7 (7.5-11.0) fL Gran % 62.3 (36.0-66.0) % Immature Gran % (Auto) 0.3 (0.00-0.4) % Nucleat RBC Rel Count 0.0 (0.00-0.1) % Eos # (Auto) 0.16 (0-0.5) x10^3/uL Immature Gran # (Auto) 0.02 (0.00-0.03) x10^3u/L Absolute Lymphs (auto) 2.08 (1.0-4.6) x10^3/uL Absolute Monos (auto) 0.64 (0.0-1.3) x10^3/uL Absolute Nucleated RBC 0.00 (0.00-0.01) x10^3u/L Lymphocytes % 26.3 (24.0-44.0) % Monocytes % 8.1 (0.0-12.0) % Eosinophils % 2.0 (0.00-5.0) % Basophils % 1.0 (0.0-0.4) % Absolute Granulocytes 4.94 (1.4-6.9) x10^3/uL Basophils # 0.08 (0-0.4) x10^3/uL Sodium 135 L (137-145) mmol/L Potassium 3.9 (3.5-5.1) mmol/L Chloride 103 (98-107) mmol/L Carbon Dioxide 26 (22-30) mmol/L Anion Gap 10.5 (5-15) MEQ/L BUN 11 (7-17) mg/dL Creatinine 0.83 (0.52-1.04) mg/dL Estimated GFR 90.8 ML/MIN Glucose 100 (74-106) mg/dL Calcium 9.7 (8.4-10.2) mg/dL Magnesium 2.0 (1.6-2.3) mg/dL Total Bilirubin 0.50 (0.2-1.3) mg/dL AST 25 (14-36) U/L ALT 22 (0-35) U/L Alkaline Phosphatase 52 (38-126) U/L Troponin I < 0.012 (0.000-0.034) ng/mL Serum Total Protein 7.7 (6.3-8.2) g/dL Albumin 4.4 (3.5-5.0) g/dL Urine Color (Yellow) Urine Appearance (Clear) Urine pH (4.6-8.0) Ur Specific [place] (1.005-1.030) Urine Protein (Negative) Urine Glucose (UA) (Negative) mg/dL Urine Ketones (Negative) Urine Blood (Negative) Urine Nitrite (Negative) Urine Bilirubin (Negative) Urine Urobilinogen (0.2) mg/dL Ur Leukocyte Esterase (Negative) U Hyaline Cast (Auto) (0-2) /LPF Urine Microscopic RBC (0-5) /HPF Urine Microscopic WBC (0-5) /HPF Ur Epithelial Cells (None Seen) /HPF Urine Bacteria (None Seen) /HPF Urine Culture Reflexed (NO) 04/02/23 Range/Units 14:49 WBC (4.0-10.5) x10^3/uL RBC (4.1-5.4) x10^6/uL Hgb (12.0-16.0) g/dL Hct (35-47) % MCV (78-100) fL MCH (26-32) pg MCHC (32-36) g/dL RDW (11.5-14.0) % Plt Count (150-450) x10^3/uL MPV (7.5-11.0) fL Gran % (36.0-66.0) % Immature Gran % (Auto) (0.00-0.4) % Nucleat RBC Rel Count (0.00-0.1) % Eos # (Auto) (0-0.5) x10^3/uL Immature Gran # (Auto) (0.00-0.03) x10^3u/L Absolute Lymphs (auto) (1.0-4.6) x10^3/uL Absolute Monos (auto) (0.0-1.3) x10^3/uL Absolute Nucleated RBC (0.00-0.01) x10^3u/L Lymphocytes % (24.0-44.0) % Monocytes % (0.0-12.0) % Eosinophils % (0.00-5.0) % Basophils % (0.0-0.4) % Absolute Granulocytes (1.4-6.9) x10^3/uL Basophils # (0-0.4) x10^3/uL Sodium (137-145) mmol/L Potassium (3.5-5.1) mmol/L Chloride (98-107) mmol/L Carbon Dioxide (22-30) mmol/L Anion Gap (5-15) MEQ/L BUN (7-17) mg/dL Creatinine (0.52-1.04) mg/dL Estimated GFR ML/MIN Glucose (74-106) mg/dL Calcium (8.4-10.2) mg/dL Magnesium (1.6-2.3) mg/dL Total Bilirubin (0.2-1.3) mg/dL AST (14-36) U/L ALT (0-35) U/L Alkaline Phosphatase (38-126) U/L Troponin I (0.000-0.034) ng/mL Serum Total Protein (6.3-8.2) g/dL Albumin (3.5-5.0) g/dL Urine Color Yellow (Yellow) Urine Appearance Clear (Clear) Urine pH 5.0 (4.6-8.0) Ur Specific [place] 1.020 (1.005-1.030) Urine Protein Negative (Negative) Urine Glucose (UA) Negative (Negative) mg/dL Urine Ketones Negative (Negative) Urine Blood Large A (Negative) Urine Nitrite Negative (Negative) Urine Bilirubin Negative (Negative) Urine Urobilinogen 1.0 A (0.2) mg/dL Ur Leukocyte Esterase Negative (Negative) U Hyaline Cast (Auto) NONE SEEN (0-2) /LPF Urine Microscopic RBC 3-5 (0-5) /HPF Urine Microscopic WBC 3-5 (0-5) /HPF Ur Epithelial Cells Few (None Seen) /HPF Urine Bacteria Rare A (None Seen) /HPF Urine Culture Reflexed NO (NO) - Progress Progress: unchanged Progress Note: 04/02/23 15:09 This patient's medical issue is 1 of low to moderate complexity. The level complex in the workup performed is based on review of the patient's past medical history, review the patient's medication list, review of patient's drug allergy list, history of present illness and physical findings on examination. Workup in this patient includes CBC, CMP, urinalysis. I do not feel that the patient needs any other laboratory or radiographic study workup other than these. I think the biggest issue the patient has is anxiety. She has an appointment made now for 04/05/2023. Patient was told to continue her 3 times a day log of her blood pressure and to continue taking her medication as prescribed. 04/02/23 15:10 Was pointed out to the patient that her systolic blood pressure today is 50 points lower than when she came in 2 days ago. 04/02/23 15:43 I interpreted the patient's laboratory data results. There is no evidence of any acute, emergent medical issue based on the patient's laboratory data results today Counseled pt/family regarding: lab results, diagnosis, need for follow-up Medical Desision Making - Diagnostic Testing Diagnostic test were ordered, analyzed, and reviewed by me: Yes - Risk of complications Minimal Risk: Minimal risk of morbidity - Departure Departure Disposition: Home Clinical Impression: Anxiety about health, Hypertension Condition: Stable Critical Care Time: No Referrals: ROSI ECHEVARRIA MD [Primary Care Provider] - Follow up/PCP as directed Additional Instructions: Continue your blood pressure medication as prescribed. Continue keeping the 3 times a day daily log until your appointment on 04/05/[address] Echevarria
[2023-04-02 14:03] VITALS: TEMP 97.5
[2023-04-02 14:58] LABS: Absolute Neutrophil Ct (ANC) 4.94 x10^3/uL (1.4-6.9); Basophil (Absolute #) 0.08 x10^3/uL (0-0.4); Eosinophil (Absolute #) 0.16 x10^3/uL (0-0.5); Hematocrit 46.6 % (35-47); Hemoglobin 15.6 g/dL (12.0-16.0); IMMATURE GRAN # 0.02 x10^3u/L (0.00-0.03); IMMATURE GRAN % 0.3 % (0.00-0.4); Lymphocyte (Absolute #) 2.08 x10^3/uL (1.0-4.6); Lymphocytes % 26.3 % (24.0-44.0); Mean Cell Volume 88.1 fL (78-100); Mean Corpuscular Hemoglobin 29.5 pg (26-32); Mean Corpuscular Hgb Concent. 33.5 g/dL (32-36); Mean Platelet Volume 9.7 fL (7.5-11.0); Monocyte (Absolute #) 0.64 x10^3/uL (0.0-1.3); Monocytes % 8.1 % (0.0-12.0); Neutrophil % 62.3 % (36.0-66.0); Platelet Count 366 x10^3/uL (150-450); Red Blood Count 5.29 x10^6/uL (4.1-5.4); Red Cell Distribution Width 12.7 % (11.5-14.0); White Blood Count 7.9 x10^3/uL (4.0-10.5)
[2023-04-02 15:08] LABS: Appearance Clear (Clear); Bacteria Rare /HPF (None Seen); Bilirubin Negative (Negative); Blood Large (Negative); Epithelial Cells Few /HPF (None Seen); Glucose, Urine Negative (Negative); Hyaline Casts NONE SEEN /LPF (0-2); Ketones Negative (Negative); Leukocyte Esterase Negative (Negative); Nitrite Negative (Negative); Protein,Urine Dip Negative (Negative)
[2023-04-02 15:18] LABS: ADD URINE CULTURE? NO (NO)
[2023-04-02 15:27] LABS: ALBUMIN 4.4 g/dL (3.5-5.0); ANION GAP 10.5 MEQ/L (5-15); BILIRUBIN,TOTAL 0.5 mg/dL (0.2-1.3); Calcium 9.7 mg/dL (8.4-10.2); Creatinine 1 0.83 mg/dL (0.52-1.04); EST GLOMERULAR FILTRATION RATE 90.8 ML/MIN; Potassium 3.9 mmol/L (3.5-5.1); Total Protein 7.7 g/dL (6.3-8.2)
[2023-04-02 15:36] VITALS: BP 122/72
[2023-04-02 15:37] VITALS: PULSE 72; RESP 18; O2SAT 98
== END 2023-04-02 16:20 ==
LOC: ED 13:19
DX: F45.9 Somatoform disorder, unspecified (principal); I10 Essential (primary) hypertension; Z79.899 Other long term (current) drug therapy; Z72.0 Tobacco use
CPT/HCPCS: 36415; 80053; 81001; 83735; 84484; 85025; 93005; 99283